=== PATIENT | female | born 1980 | race Caucasian/White ===

== ENCOUNTER 2016-11-06 16:31 | Emergency (ER) | payer OTHER ==
[~2016-11-06] VITALS: Ht 175.3 cm; Wt 136.1 kg
--- NOTE | 2016-11-06 17:32 | ED INFLUENZA/URI COMPLAINT ---
History of Present Illness General Chief Complaint: Upper Respiratory Sx/Fever Stated Complaint: ?URI Source: patient Exam Limitations: no limitations Vital Signs & Intake/Output Vital Signs & Intake/Output Vital Signs Date Time Temp Pulse Resp B/P B/P Pulse O2 O2 Flow FiO2 Mean Ox Delivery Rate 11/06 1808 98.9 86 18 132/74 94 Room Air 11/06 1801 95 Allergies Coded Allergies: Penicillins (RASH 11/06/16) Reconcile Medications Albuterol Sulfate (Ventolin Hfa) 90 MCG HFA.AER.AD 2 PUF INH Q4-6 PRN PRN WHEEZING/SHORTNESS OF BREATH Azithromycin 250 MG TABLET 1 DP PO AD lung infection 2 the first day followed by 1 for days 2-5 Benzonatate 200 MG CAPSULE 1 CAP PO TID PRN cough Prednisone 10 MG TABLET 6 TAB PO DAILY bronchospasm Triage Note: TRIAGE: SORE THROAT AND L EAR ACHE SINCE SUNDAY. SOB AND NONPRODUCTIVE COUGH SINCE SUNDAY. REPORTS RIB PAIN WITH COUGHING. 95% IN TRIAGE. HX OF ASTHMATIC BRONCHITIS A CHILD. REPORTS FEVERS AT HOME SINCE SUNDAY, HIGHEST 103. AFEBRILE IN TRIAGE. THROAT SWABS OBTAINED AND SENT TO LAB Triage Nurses Notes Reviewed? yes : No Patient currently breastfeeds: No HPI: Patient is a 36-year-old female presents complaining of sore throat, left ear pain, cough, chest congestion. Symptoms onset on Sunday. Pain in the left ear and throat been gradually improving. Cough, chest congestion, wheezing have bee worsening over the past couple of days. Patient's been taking Aleve, DayQuil, NyQuil with minimal improvement. Fevers up to 103F. Patient reports that she gets pneumonia approximately once a year. Patient had asthmatic bronchitis as a child. Does not have any inhalers at home. Patient denies sick contacts. (JUVE KHANNA) Past History Travel History Traveled to [place] past 21 day No Medical History Any Pertinent Medical History? see below for history Neurological: NONE EENT: NONE Cardiovascular: NONE Respiratory: pneumonia, ASTHMATIC BRONCHITIS Gastrointestinal: NONE Hepatic: NONE Renal: NONE Musculoskeletal: NONE Psychiatric: NONE Endocrine: NONE Blood Disorders: NONE Cancer(s): NONE Surgical History Surgical History: non-contributory Psychosocial History What is your primary language Haitian Tobacco Use: Current Not Daily Family History Hx Contributory? No (JUVE KHANNA) Review of Systems Review of Systems Constitutional: Reports: chills, fever. EENTM: Reports: see HPI. Respiratory: Reports: cough, short of breath, wheezing. Cardiovascular: Denies: chest pain. GI: Denies: abdominal pain. Musculoskeletal: Reports: no symptoms. Skin: Reports: no symptoms. Neurological/Psychological: Reports: no symptoms. Hematologic/Endocrine: Reports: no symptoms. Immunologic/Allergic: Reports: no symptoms. (JUVE KHANNA) Physical Exam Physical Exam General Appearance: well developed/nourished, alert, awake Head: atraumatic, normal appearance Eyes: Bilateral: normal appearance, PERRL, EOMI. Ears, Nose, Throat: normal ENT inspection, moist mucous membrane, hearing grossly normal, clear fluid posterior to tympanic membranes bilaterally Neck: normal inspection, supple, full range of motion Respiratory: diffuse moderate expiratory wheezing Cardiovascular: regular rate/rhythm (no appreciable murmur) Back: normal inspection, normal range of motion Extremities: normal inspection, normal range of motion Neurologic/Psych: no motor/sensory deficits, awake, alert, oriented x 3, normal gait, normal mood/affect Skin: intact, normal color, warm/dry Lymphatic: no anterior cervical saravanan Core Measures Severe Sepsis Present: No Septic Shock Present: No (JUVE KHANNA) Progress Differential Diagnosis: influenza, pneumonia, pharyngitis, sinusitis, bronchitis Plan of Care: Orders Procedure Date/time Status THROAT CULTURE W/QUICK STREP 11/06 1656 Active 1800: Patient reports mild to moderate improvement after nebulizer treatment. Lungs reexamined. Wheezing improving. Currently mild diffuse wheezing. We'll treat empirically. Chest x-ray deferred secondary to exam. Patient has no point with her primary doctor at the end of this week. Appears stable for discharge. (JUVE KHANNA) Initial ED EKG: none (JUVE KHANNA) Departure Departure Time of Disposition: 1804 Disposition: HOME OR SELF CARE Condition: Stable Clinical Impression Primary Impression: Bronchitis Referrals: FREDDY GOULD,CARLOS Alan Additional Instructions: Follow up with her primary doctor at the end of week as scheduled. Return to the emergency department if breathing worsening, unable to say hydrated, or worsening of symptoms. Departure Forms: Customer Survey General Discharge Information Prescriptions: Current Visit Scripts Azithromycin 1 DP PO AD #6 TAB 2 the first day followed by 1 for days 2-5 Prednisone 6 TAB PO DAILY #24 TAB Benzonatate 1 CAP PO TID PRN cough #30 CAP Albuterol Sulfate (Ventolin Hfa) 2 PUF INH Q4-6 PRN PRN WHEEZING/SHORTNESS OF BREATH #1 INHAL (JUVE KHANNA) PA/TRANSIT OPERATIONS SUPERVISOR Co-Sign Statement Statement: ED Attending supervision documentation- [] I saw and evaluated the patient. I have also reviewed all the pertinent lab results and diagnostic results. I agree with the findings and the plan of care as documented in the PA's/TRANSIT OPERATIONS SUPERVISOR's documentation. [X] I have reviewed the ED Record and agree with the PA's/TRANSIT OPERATIONS SUPERVISOR's documentation. [] Additions or exceptions (if any) to the PAs/TRANSIT OPERATIONS SUPERVISOR's note and plan are summarized below: [] (ODILIA GOULD,MACKENZIE)
[2016-11-06] MEDS ORDERED: VENTOLIN HFA18 GM INH (18:03)
[2016-11-06] MEDS ORDERED: AZITHROMYCIN250 M1 PO (18:03)
[2016-11-06] MEDS ORDERED: PREDNISONE10 M2 PO (18:03)
[2016-11-06] MEDS ORDERED: BENZONATATE200 M1 PO (18:03)
[2016-11-06 18:09] VITALS: BP 132/74
== END 2016-11-06 18:10 ==
LOC: ERH 16:31
DX: J40 Bronchitis, not specified as acute or chronic (principal); F17.200 Nicotine dependence, unspecified, uncomplicated
CPT/HCPCS: 1263

== ENCOUNTER 2017-01-04 16:37 | Inpatient (IN) | payer OTHER ==
[~2017-01-04] VITALS: Ht 175.3 cm; Wt 173.8 kg
[~2017-01-04 16:37] MED LIST: AZITHROMYCIN250 M1 PO; BENZONATATE200 M1 PO; PREDNISONE10 M2 PO; VENTOLIN HFA18 GM INH
--- NOTE | 2017-01-04 16:39 | NUR ---
SPO2 97% HR 112
--- NOTE | 2017-01-04 16:43 | NUR ---
36 Y/O FEMALE C/O SOB AND BILATERAL LEG SWELLING X 1-1.5 WEEKS. STATES THE SOB IS WORSE IF SHE BENDS OVER OR LAYS FLAT. MODERATE SWELLING NOTED TO BILTATERAL LEGS. DENIES PAIN TAKEN FOR EKG
--- NOTE | 2017-01-04 17:29 | ED DYSPNEA/ASTHMA COMPLAINT ---
See Addendum History of Present Illness General Chief Complaint: Dyspnea (COPD, CHF, Other) Stated Complaint: SOB, FEET SWOLLEN Source: patient Exam Limitations: no limitations Vital Signs & Intake/Output Vital Signs & Intake/Output Vital Signs Date Time Temp Pulse Resp B/P B/P Pulse O2 O2 Flow FiO2 Mean Ox Delivery Rate 01/05 2224 97.1 112 20 156/74 Room Air 01/04 2009 97.3 110 18 156/74 Room Air 01/04 1801 97.1 111 16 152/75 Room Air 01/04 1757 99 Room Air 01/04 1640 96.6 116 20 159/94 96 Room Air Allergies Coded Allergies: Penicillins (RASH 11/06/16) Reconcile Medications No Known Home Medications Triage Note: 36 Y/O FEMALE C/O SOB AND BILATERAL LEG SWELLING X 1-1.5 WEEKS. STATES THE SOB IS WORSE IF SHE BENDS OVER OR LAYS FLAT. MODERATE SWELLING NOTED TO BILTATERAL LEGS. DENIES PAIN TAKEN FOR EKG Triage Nurses Notes Reviewed? yes Onset: Gradual Duration: getting worse Timing: recent history Severity: severe Activities at Onset: activity Prior Episodes/Possible Cause: no prior episodes : No Patient currently breastfeeds: No HPI: Patient is a 36-year-old female with an unremarkable past medical history who is in every day smoker who presents emergency room with a 2 week history of gradual onset of worsening bilateral lower extremity swelling. Patient also admits to dyspnea on exertion complaints since symptoms began. Patient last week had a one-day episode of chest pressure and heaviness pain that resolved that day and none since. Patient does have nausea that was noted yesterday. Patient states that ambulation lying down and bending over makes her shortness of breath worse. Patient denies any illicit drug use. Denies any fever chills current chest pain nausea vomiting abdominal pain back pain, hemoptysis, history of DVT or PE recent travel recent surgery. Patient is not on an oral contraceptive. Denies any palpitations or diaphoresis (KIESHA HOLLOWAY) Past History Travel History Traveled to [place] past 21 day No Medical History Any Pertinent Medical History? see below for history Neurological: NONE EENT: NONE Cardiovascular: NONE Respiratory: pneumonia, ASTHMATIC BRONCHITIS Gastrointestinal: NONE Hepatic: NONE Renal: NONE Musculoskeletal: NONE Psychiatric: NONE Endocrine: NONE Blood Disorders: NONE Cancer(s): NONE Surgical History Surgical History: non-contributory Psychosocial History What is your primary language Sammarinese Tobacco Use: Current Daily Use Daily Tobacco Use Amount/Type: =< 4 Cigarettes daily Family History Hx Contributory? No (KIESHA HOLLOWAY) Review of Systems Review of Systems Constitutional: Reports: no symptoms. EENTM: Reports: no symptoms. Respiratory: Reports: see HPI, short of breath. Cardiovascular: Reports: see HPI, peripheral edema. GI: Reports: no symptoms. Genitourinary: Reports: no symptoms. Musculoskeletal: Reports: no symptoms. Skin: Reports: no symptoms. Neurological/Psychological: Reports: no symptoms. Hematologic/Endocrine: Reports: no symptoms. Immunologic/Allergic: Reports: no symptoms. All Other Systems: Reviewed and Negative (KIESHA HOLLOWAY) Physical Exam Physical Exam General Appearance: obese Respiratory: normal breath sounds, chest non-tender, no respiratory distress Cardiovascular: tachycardia Comments: HEENT: Normal EENT exam, Neck: Supple, no lymphadenopathy, normal range of motion without pain or tenderness Back: Nontender, no CVA tenderness. Respiratory: Chest nontender. No respiratory distress.breath sounds clear to auscultation bilaterally Abdomen: Soft, nontender nondistended, no appreciable organomegaly. Normal bowel sounds. No ascites Extremity: +2 nonpitting bilateral lower extremity edema no calf tenderness to palpation, normal and equal pulses. Neuro: Alert oriented x3, motor sensory normal, Skin: No appreciable rash on exposed skin, skin is warm and dry. Psych: Mood and affect is normal, memory and judgment is normal. Core Measures ACS in differential dx? No Severe Sepsis Present: No Septic Shock Present: No (KIESHA HOLLOWAY) Progress Differential Diagnosis: asthma, AMI, bronchitis, costochondritis, CHF, COPD, musculoskeletal pain, pericarditis, pulmonary embolism, pneumonia, pneumothorax, rib fracture, unstable angina Plan of Care: Orders Procedure Date/time Status Regular Diet 01/05 B Active Intake & Output 01/04 2211 Active OXYGEN SETUP (GEN) 01/05 2204 Active Saline Lock 01/05 2204 Active Misc Message 01/05 2204 Active ED Holding Orders 01/05 2204 Active Vital Signs 01/05 2204 Active Activity/Ambulation 01/05 2204 Active Code Status 01/05 2204 Active Patient Data 01/04 2147 Active Admit to inpatient 01/04 2127 Active Add-on Test (ER Only) 01/04 1813 Active HUMAN BETA HCG SCREEN 01/04 1757 Complete Telemetry/Software Test Specialist 01/04 1751 Active THYROID STIMULATING HORMONE 01/04 1751 Complete TROPONIN LEVEL 01/04 1751 Complete FREE T4 01/04 1751 Complete D-DIMER 01/04 1751 Complete COMPREHENSIVE METABOLIC PANEL 01/04 1751 Complete CBC WITHOUT DIFFERENTIAL 01/04 1751 Complete B-TYPE NATRIURETIC PEP (BNP) 01/04 1751 Complete EKG 01/04 1641 Active Laboratory Tests 01/04/171756: Anion Gap 10, Estimated GFR 57 L, BUN/Creatinine Ratio 16.4, Glucose 107 H, Calcium 9.5, Total Bilirubin 1.2, AST 24, ALT 54 H, Alkaline Phosphatase 65, Troponin I 0.07, Bgc-H-Btlmssiwwqt Pept 6720 H, Total Protein 6.2 L, Albumin 3.9, Globulin 2.3, Albumin/Globulin Ratio 1.7, TSH 4.730 H, Free T4 1.37, Total Beta HCG NEGATIVE, D-Dimer High Sensitivty 619 H, CBC w Diff NO MAN DIFF REQ, RBC 4.59, MCV 86.1, MCH 27.9, RDW 15.8 H, MPV 10.0, Gran % 58.7, Lymphocytes % 31.6, Monocytes % 3.9, Eosinophils % 4.5, Basophils % 1.3, Absolute Granulocytes 5.8, Absolute Lymphocytes 3.1, Absolute Monocytes 0.4, Absolute Eosinophils 0.4, Absolute Basophils 0.1, PUBS MCHC 32.4 L Patient on initial examination was resting comfortably at bedside clear lungs auscultation however there is noted persistent tachycardia 110 bpm. Due to history of present illness of trace pleural effusion, leg swelling, dyspnea on exertion elevated BNP and cardiomegaly there is concerns of acute onset of CHF. Patient was administered IV Lasix in the emergency room. It was noted to me after mom did present to the emergency room that 18 months ago patient had a cardiac arrest due to significant ecstasy use. Patient states that she has done this in the past however she states that she was not an EVERYDAY user. Patient has not used since I discussed patient with Dr. Cooley who advised patient to be admitted on telemetry under his service in which patient will occur echocardiogram pulmonary consultation and WINDOW CUTTER for the adenopathy noted on CT scan. (CAITLYN PATRICIA,KIESHA) Diagnostic Imaging: Viewed by Me: Radiology Read, CT Scan, Ultrasound. CXR Impression: cardiomegaly see comments Initial ED EKG: sinus tachycardia 114 bpm, multiple artifact noted Comments: PATIENT: ION FOWLER PRESENT AGE: 36 PATIENT ACCOUNT NO: [id number] : 81 LOCATION: [facility] ORDERING PHYSICIAN: KIESHA PATRICIA SERVICE DATE: 01/04/17 EXAM TYPE: CAT - CTA CHEST-PULMONARY EMBOLISM EXAMINATION: CT ANGIOGRAM OF THE CHEST WITH AND WITHOUT CONTRAST (CT PULMONARY ANGIOGRAM FOR PE) CLINICAL INFORMATION: Reason for Study:
Presumptive Dx: SOB, ELEVATED DIMER
Signs Symptoms: LEG SWELLING
COMPARISON: None. TECHNIQUE: Prior to contrast administration, noncontrast localization images were obtained. Subsequently, multidetector volumetric imaging was performed from the thoracic inlet to below the diaphragms following the administration of 120 mL Optiray 350 intravenous contrast. No contrast reaction reported. Sagittal, coronal, and MIP oblique sagittal reformatted images were obtained on the CT workstation, uploaded to PACS, and reviewed. Total exam dose-length product 630 mGy-cm. FINDINGS: QUALITY OF STUDY/CONTRAST BOLUS: Satisfactory PULMONARY ARTERIES: No central or segmental pulmonary emboli. THORACIC AORTA: No aneurysm or dissection. LUNG: No focal consolidation, nodules or masses. Mild dependent basilar atelectasis. PLEURA: Trace right-sided pleural effusion. No pneumothorax. MEDIASTINUM: Multiple small right-sided superior clavicular lymph nodes are suggested the largest just under 1 cm maximal dimension. A similar sized pretracheal lymph node is also identified. There is subcarinal lymphadenopathy measuring 2.8 cm in short axis dimension. There are a few mildly prominent prevascular lymph nodes the largest measuring 1 cm short axis dimension. Heart is mildly enlarged. There is no pericardial effusion. CHEST WALL/AXILLA: No axillary adenopathy. Breasts appear unremarkable. OSSEOUS STRUCTURES: No aggressive osseous lesions. UPPER ABDOMEN: Unremarkable. IMPRESSION: 1. No evidence of pulmonary emboli. 2. Trace right-sided pleural effusion and basilar atelectasis. 3. Right supraclavicular and subcarinal lymphadenopathy with other small borderline enlarged mediastinal nodes as noted. Differential includes reactive changes versus sarcoidosis versus malignancy. Clinical and nonemergent pulmonary consultation is recommended. VTE: Negative for pulmonary embolism. DICTATED BY: DACIA MAE MD DATE/TIME DICTATED:01/04/172018 ABA THERAPIST:MATEUS DATE/TIME TRANSCRIBED:01/04/172018 CONFIDENTIAL, DO NOT COPY WITHOUT APPROPRIATE AUTHORIZATION. <Electronically signed in Other Vendor System> SIGNED BY: DACIA MAE MD 2102 PATIENT: ION FOWLER PRESENT AGE: 36 PATIENT ACCOUNT NO: [id number] : 81 LOCATION: ER ORDERING PHYSICIAN: KIESHA PATRICIA SERVICE DATE: 01/04/17 EXAM TYPE: US - US-EXT BILAT VENOUS DOPPLER EXAMINATION: US TRIPLEX OF LOWER EXTREMITIES, BILATERAL CLINICAL INFORMATION: Bilateral lower extremity swelling. COMPARISON: None TECHNIQUE: Color-flow triplex imaging with spectral analysis and compression Doppler were performed on the lower extremities. Technologist notes exam is very limited due to patient body habitus. Selected static images are provided for interpretation. FINDINGS: Respiratory variation, normal compression and augmented flow are noted throughout the lower extremities. The visualized common femoral vein, superficial femoral vein, profunda femoral vein, popliteal vein and tibioperoneal trunk venous segments show no evidence of deep venous thrombosis. Calf veins below the tibioperoneal trunk are not visualized on this exam. There is no Muse's cyst. IMPRESSION: No evidence of deep venous thrombosis involving the lower extremities. Calf veins are not visualized. DICTATED BY: DACIA MAE MD DATE/TIME DICTATED:01/04/171931 PATIENT: ION FOWLER PRESENT AGE: 36 PATIENT ACCOUNT NO: [id number] : 81 LOCATION: [facility] ORDERING PHYSICIAN: RORY ANDRADE MD SERVICE DATE: 01/04/17 EXAM TYPE: RAD - XRY-CHEST XRAY, PA AND LATERAL EXAMINATION: XR CHEST CLINICAL INFORMATION: Cough, short of breath. COMPARISON: None TECHNIQUE: 2 views of the chest were obtained. FINDINGS: Exam is of somewhat limited diagnostic quality due to patient body habitus and technique, especially the lateral view. Heart appears enlarged. The cardiomediastinal silhouette is otherwise unremarkable. The lungs and pleural spaces appear clear without evidence of congestion, consolidation, or significant appearing effusion or atelectasis. There is no evidence of pneumothorax or pulmonary edema. Included osseous structures appear largely unremarkable. IMPRESSION: Cardiomegaly, no definite acute process on this somewhat limited examination. DICTATED BY: DACIA MAE MD DATE/TIME DICTATED:01/04/171746 ABA THERAPIST:MATEUS DATE/TIME TRANSCRIBED:01/04/171746 (KIESHA HOLLOWAY) Departure Departure Disposition: STILL A PATIENT Condition: Stable Clinical Impression Primary Impression: CHF (congestive heart failure) Secondary Impressions: Lymphadenopathy Referrals: PATIENT HAS NO PRIMARY CARE DR (PCP/Family) Departure Forms: Customer Survey General Discharge Information Prescriptions: Current Visit Scripts No Known Home Medications Admission Note Spoke With: Elina COOLEY MD Documentation of Exam: Documentation of any treatments & extenuating circumstances including Concerns Regarding Discharge (functional status, medication knowledge or non-compliance, living conditions, etc.) that warrant an admission rather than observation: [ Discussed patient with Dr. Cooley who agrees with telemetry admission for concerns of CHF and adenopathy. Patient requires echocardiogram, pulmonary consultation and possible WINDOW CUTTER consultation for adenopathy. Patient requires IV Lasix and continuous monitoring of telemetry. Outpatient treatment at this time would be medically harmful] (KIESHA HOLLOWAY) PA/PIPE FITTER APPRENTICE Co-Sign Statement Statement: ED Attending supervision documentation- [X] I saw and evaluated the patient. I have also reviewed all the pertinent lab results and diagnostic results. I agree with the findings and the plan of care as documented in the PA's/PIPE FITTER APPRENTICE's documentation. [X] I have reviewed the ED Record and agree with the PA's/PIPE FITTER APPRENTICE's documentation. [] Additions or exceptions (if any) to the PAs/PIPE FITTER APPRENTICE's note and plan are summarized below: [] (JOSÉ MIGUEL GOULD,YASMIN Freedman) Critical Care Note Critical Care Note Critical Care Time: non-applicable (KIESHA HOLLOWAY)
--- NOTE | 2017-01-04 17:35 | NUR ---
PT AMBULATORY TO ROOM FROM XRAY
--- NOTE | 2017-01-04 17:51 | RADIOLOGY REPORT ---
EXAMINATION: XR CHEST CLINICAL INFORMATION: Cough, short of breath. COMPARISON: None TECHNIQUE: 2 views of the chest were obtained. FINDINGS: Exam is of somewhat limited diagnostic quality due to patient body habitus and technique, especially the lateral view. Heart appears enlarged. The cardiomediastinal silhouette is otherwise unremarkable. The lungs and pleural spaces appear clear without evidence of congestion, consolidation, or significant appearing effusion or atelectasis. There is no evidence of pneumothorax or pulmonary edema. Included osseous structures appear largely unremarkable. IMPRESSION: Cardiomegaly, no definite acute process on this somewhat limited examination.
--- NOTE | 2017-01-04 18:00 | NUR ---
LABS DRAWN AND SENT (BLUE,SST,LAV,BURDICK)
[2017-01-04 18:12] LABS: ABSOLUTE BASOPHIL COUNT 0.1 /CUMM (0.0-0.2); ABSOLUTE EOSINOPHIL COUNT 0.4 /CUMM (0.0-0.7); ABSOLUTE GRANULOCYTE CT 5.8 /CUMM (1.4-6.5); ABSOLUTE LYMPH COUNT 3.1 /CUMM (1.2-3.4); ABSOLUTE MONOCYTE COUNT 0.4 /CUMM (0.10-0.60); BASOPHIL % 1.3 % (0.0-2.0); EOSINOPHIL % 4.5 % (0-5); GRANULOCYTE % 58.7 % (42.2-75.2); HEMATOCRIT 39.6 % (37-47); MEAN CORPUSCULAR HGB 27.9 PG (27.0-31.0); MEAN CORPUSCULAR HGB CONC 32.4 G/DL (33.0-37.0); MEAN CORPUSCULAR VOLUME 86.1 FL (81.0-99.0); PLATELET COUNT 276 /CUMM (130-400); RBC DISTRIBUTION WIDTH 15.8 % (11.5-14.5); RED BLOOD CELL CT 4.59 /CUMM (4.20-5.40); WHITE BLOOD CELL COUNT 9.9 /CUMM (4.8-10.8)
--- NOTE | 2017-01-04 19:02 | NUR ---
PT TO ULTRASOUND
--- NOTE | 2017-01-04 19:38 | ULTRASOUND REPORT ---
EXAMINATION: US TRIPLEX OF LOWER EXTREMITIES, BILATERAL CLINICAL INFORMATION: Bilateral lower extremity swelling. COMPARISON: None TECHNIQUE: Color-flow triplex imaging with spectral analysis and compression Doppler were performed on the lower extremities. Technologist notes exam is very limited due to patient body habitus. Selected static images are provided for interpretation. FINDINGS: Respiratory variation, normal compression and augmented flow are noted throughout the lower extremities. The visualized common femoral vein, superficial femoral vein, profunda femoral vein, popliteal vein and tibioperoneal trunk venous segments show no evidence of deep venous thrombosis. Calf veins below the tibioperoneal trunk are not visualized on this exam. There is no Muse's cyst. IMPRESSION: No evidence of deep venous thrombosis involving the lower extremities. Calf veins are not visualized.
--- NOTE | 2017-01-04 19:54 | NUR ---
CT CALLED AND NOTIFIED IV PLACED AND PT READY
--- NOTE | 2017-01-04 20:58 | NUR ---
HARSHAD BRADY WITH PATIENT
--- NOTE | 2017-01-04 21:03 | CT SCAN REPORT ---
EXAMINATION: CT ANGIOGRAM OF THE CHEST WITH AND WITHOUT CONTRAST (CT PULMONARY ANGIOGRAM FOR PE) CLINICAL INFORMATION: Reason for Study:
Presumptive Dx: SOB, ELEVATED DIMER
Signs Symptoms: LEG SWELLING
COMPARISON: None. TECHNIQUE: Prior to contrast administration, noncontrast localization images were obtained. Subsequently, multidetector volumetric imaging was performed from the thoracic inlet to below the diaphragms following the administration of 120 mL Optiray 350 intravenous contrast. No contrast reaction reported. Sagittal, coronal, and MIP oblique sagittal reformatted images were obtained on the CT workstation, uploaded to PACS, and reviewed. Total exam dose-length product 630 mGy-cm. FINDINGS: QUALITY OF STUDY/CONTRAST BOLUS: Satisfactory PULMONARY ARTERIES: No central or segmental pulmonary emboli. THORACIC AORTA: No aneurysm or dissection. LUNG: No focal consolidation, nodules or masses. Mild dependent basilar atelectasis. PLEURA: Trace right-sided pleural effusion. No pneumothorax. MEDIASTINUM: Multiple small right-sided superior clavicular lymph nodes are suggested the largest just under 1 cm maximal dimension. A similar sized pretracheal lymph node is also identified. There is subcarinal lymphadenopathy measuring 2.8 cm in short axis dimension. There are a few mildly prominent prevascular lymph nodes the largest measuring 1 cm short axis dimension. Heart is mildly enlarged. There is no pericardial effusion. CHEST WALL/AXILLA: No axillary adenopathy. Breasts appear unremarkable. OSSEOUS STRUCTURES: No aggressive osseous lesions. UPPER ABDOMEN: Unremarkable. IMPRESSION: 1. No evidence of pulmonary emboli. 2. Trace right-sided pleural effusion and basilar atelectasis. 3. Right supraclavicular and subcarinal lymphadenopathy with other small borderline enlarged mediastinal nodes as noted. Differential includes reactive changes versus sarcoidosis versus malignancy. Clinical and nonemergent pulmonary consultation is recommended. VTE: Negative for pulmonary embolism.
--- NOTE | 2017-01-04 21:56 | NUR ---
PT GOING TO ROOM 180-1
--- NOTE | 2017-01-04 22:35 | NUR ---
REPORT TO SHARRON OCONNOR ON 1N
--- NOTE | 2017-01-04 22:39 | History & Physical ---
See Addendum JUVE JOHNSON MD 01/04/17 5609: General Information and HPI MD Statement: I have seen and personally examined ION FOWLER and documented this H& P. The patient is a 36 year old F who presented with a patient stated chief complaint of dyspnea and lower extremity edema. Source of Information: patient Exam Limitations: no limitations History of Present Illness: 36 year old female with PMH of smoking 15 pack years, asthma/COPD, h/o pneumonia presents with one week history of increasing dyspnea on exertion and lower extremity edema. Patient states that her lower Allergies/Medications Allergies: Coded Allergies: Penicillins (RASH 11/06/16) Home Med list No Known Home Medications Compliance With Home Meds: GOOD (no meds) Past History Travel History Traveled to [place] past 21 day No Medical History Neurological: NONE EENT: NONE Cardiovascular: mitral regurgitation (mvp), cardiac arrest s/p drug Respiratory: pneumonia, ASTHMATIC BRONCHITIS Gastrointestinal: NONE Hepatic: NONE Renal: NONE Musculoskeletal: NONE Psychiatric: NONE Endocrine: NONE Blood Disorders: NONE Cancer(s): NONE Surgical History Surgical History: right shoulder Past Family/Social History Family History Relations & Conditions if any paternal grandmother FH: coronary artery disease Hypertension Psychosocial History Smoking Status: Current Everyday Smoker (1ppd) ETOH Use: occasional use Functional Ability ADLs Independent: dressing, eating, toileting, bathing. Ambulation: independent IADLs Independent: shopping, housework, finances, food prep, telephone, transportation , medication admin. Employment History Employment recent job loss 01/15 Review of Systems Review of Systems Constitutional: Reports: no symptoms. EENTM: Reports: no symptoms. Cardiovascular: Reports: edema, orthopena, peripheral edema. Denies: chest pain, palpitations, syncope. Respiratory: Reports: cough, orthopnea, short of breath. Denies: hemoptysis, sputum production, stridor, wheezing. GI: Reports: nausea. Denies: abdominal pain, constipation, diarrhea, melena, vomiting. Genitourinary: Denies: dysuria, frequency, nocturia, urgency. Musculoskeletal: Reports: no symptoms. Skin: Reports: no symptoms. Neurological/Psychological: Reports: no symptoms. Exam & Diagnostic Data Last 24 Hrs of Vital Signs/I&O Vital Signs Date Time Temp Pulse Resp B/P B/P Pulse O2 O2 Flow FiO2 Mean Ox Delivery Rate 01/04 2316 98.1 107 20 128/90 95 Room Air 01/04 2224 97.1 112 20 156/74 Room Air 01/04 2009 97.3 110 18 156/74 Room Air 01/04 1801 97.1 111 16 152/75 Room Air 01/04 1757 99 Room Air 01/04 1640 96.6 116 20 159/94 96 Room Air Intake & Output 01/05 0800 07 0000 01/04 1600 Intake Total 180 Output Total Balance 180 Intake, Oral 180 Patient 350 lb Weight Weight Reported by Patient Measurement Method Physical Exam General Appearance Alert, Oriented X3, Cooperative, No Acute Distress Skin No Rashes, No Breakdown Skin Temp/Moisture Exam: Warm/Dry Sepsis Skin Exam (color): Normal for Ethnicity HEENT Atraumatic, PERRLA, EOMI, Mucous Membr. moist/pink Neck Supple, No JVD Lymphatic Cervical nl (tender to palpation on the rig) Cardiovascular Regular Rate, Normal S1, Normal S2, No Murmurs Lungs Clear to Auscultation, Normal Air Movement Abdomen Normal Bowel Sounds, Soft, No Tenderness, No Masses, obese Neurological Normal Gait, Normal Speech, Strength at 5/5 X4 Ext, Normal Tone, Sensation Intact, Cranial Nerves 3-12 NL Extremities No Clubbing, No Cyanosis, Normal Pulses, 2+ pitting edema to midshin Vascular Normal Pulses, Pulses Symmetrical Last 24 Hrs of Labs/[place]: Laboratory Tests 01/04/171756: Anion Gap 10, Estimated GFR 57 L, BUN/Creatinine Ratio 16.4, Glucose 107 H, Calcium 9.5, Total Bilirubin 1.2, AST 24, ALT 54 H, Alkaline Phosphatase 65, Troponin I 0.07, [id number] Pept 6720 H, Total Protein 6.2 L, Albumin 3.9, Globulin 2.3, Albumin/Globulin Ratio 1.7, TSH 4.730 H, Free T4 1.37, Total Beta HCG NEGATIVE, D-Dimer High Sensitivty 619 H, CBC w Diff NO MAN DIFF REQ, RBC 4.59, MCV 86.1, MCH 27.9, RDW 15.8 H, MPV 10.0, Gran % 58.7, Lymphocytes % 31.6, Monocytes % 3.9, Eosinophils % 4.5, Basophils % 1.3, Absolute Granulocytes 5.8, Absolute Lymphocytes 3.1, Absolute Monocytes 0.4, Absolute Eosinophils 0.4, Absolute Basophils 0.1, PUBS MCHC 32.4 L Diagnostic Data EKG Results sinus tachycardia, borderline prolonged qt, t wave flattening lateral leads CXR Results cardiomegaly Other Results CTA chest-No evidence of pulmonary emboli. Trace right-sided pleural effusion and basilar atelectasis. Right supraclavicular and subcarinal lymphadenopathy with other small borderline enlarged mediastinal nodes LE Doppler negative for DVT Assessment/Plan Assessment: 36 year old female with PMH of smoking and multiple past PNAs presents with one week history of increasing dyspnea on exertion and lower extremity edema. Patient has new subacute onset of GALAVIZ with LE edema, cardiomegaly on CXR and elevated proBNP concerning for new onset congestive heart failure. Admit to telemetry, continuous rhythm monitoring, vitals qshift. 1. Congestive heart failure: h/o cardiac arrest and CPR Spring 2015 secondary to drug accidental drug overdose. Serial troponins/EKGs to rule out ACS Cardiology consult Echocardiogram Check lipid panel Patient recieved IV furosemide in the ED Lifestyle modification-diet, exercise and weight loss counseling Consider starting statin therapy if appropriate Can consider treatment with an JUAREZ inhibitor 2. Acute renal failure: Creatinine elevated to 1.1 baseline is 0.7, s/p IV furosemide in ED No IV fluid hydration for now with acute CHF presumptive diagnosis Trend renal function and electrolye panel with AM labs D dimer was elevated in ED, LE doppler and CTA chest negative for DVT/PE Incidental finding on CTA of enlarged supraclavicular and carinal nodes, nonurgent pulmonary consultation recommended. Smoking cessation-nicotine patch 14mg Heart healthy diet DVT ppx-heparin 5000u subq Q8H Full code As Ranked By This Provider Problem List: 1. CHF (congestive heart failure) Core Measures/Miscellaneous Acute Coronary Syndrome ACS Diagnosis: No Cerebrovascular Accident CVA/TIA Diagnosis: No Congestive Heart Failure CHF Diagnosis: Yes VTE (View Protocol) VTE Risk Factors: Acute medical illness, Obesity, Smoking No [facility] VTE prophylaxis d/t: No contraindications No VTE Pharm Prophylaxis d/t: No contraindications VTE Diagnosis: No VTE Type: NONE VTE Confirmed by (Test): NONE Sepsis (View Protocol) Severe Sepsis Present: No Septic Shock Septic Shock Present: No Miscellaneous Documentation Attending Case Discussed With: YASIR GOULD,Elina HUERTA Primary Care Physician: PATIENT HAS NO PRIMARY CARE DR Patient sees these Specialists none Level of Patient Care: Telemetry Consults Needed: Consulting Specialty: Cardiology SADIQ MORTENSEN 01/04/17 1099: Resident Review Statement Resident Statement: examined this patient, discussed with graphics intern, agreed with graphics intern Other Findings: Patient is 36 year old morbidly obese female with past medical history significant for mitral valve prolapse diagnosis as a child 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 According to her she start noticing left lower extremity edema especially on her left fourth later on she was start noticing on right leg and foot as well and her shortness of breath it is getting worse to a point that she gets short of breath even walking to the restroom and also when she lied down and bend over. She denied any cough, wheezing, chest pain, palpitations, headache, any urinary or bowel complaints. She is a current smoker and smoked less than a pack a day. She denied any recent incarceration, any sick contact, fever or chills. Vision endorses that she had recent bronchitis and she had pneumonia almost every year for past 3 years. Vital signs on admission were temperature 97.1, pulse 111, blood pressure 152/75 and she was saturating 96% on room air. Labs were WBC count 9.9, hemoglobin 12.8, platelet count 276, d-dimer 619, sodium 141, potassium 4.7, BUNs 18, creatinine 1.1, initial set of troponin 0.07 , proBNP 6720 Venous Doppler was negative for any DVT Chest CTA was negative for any pulmonary emboli but showed right supraclavicular and subcarinal lymphadenopathy with small borderline enlarged mediastinal nodes. Also trace right-sided pleural effusion and basilar atelectasis. On physical examination Alert and oriented 3 Head atraumatic Neck supple with supraclavicular fullness Lungs clear to auscultate Heart S1-S2 normal with no added sounds Abdomen obese with normal bowel sounds Extremities showed bilateral 2+ pitting edema No neurological deficit noted Assessment and plan 36 year old morbidly obese female with history of drug overdose status post cardiac arrest came with chief complaint of worsening bilateral lower extremity edema and shortness of breath and found to have elevated proBNP and pleural effusion most likely new onset CHF. Also found to have supraclavicular, subcarinal and mediastinal lymphadenopathy. We will admit patient on telemetry floor and will take care for the following problems Problem #1 bilateral lower extremity edema with cardiomegaly and pleural effusion most likely new onset CHF 1. Patient was given 40 mg of IV Lasix in ER and we will start on 40 mg Lasix daily 2. States in's and out Daily weight Cardiology consultation Echocardiogram We will trend towards an EKG is to rule out ACS Problem #2 supraclavicular, subcarinal and mediastinal lymphadenopathy we will ruled out any intrathoracic/bronchial/intra-abdominal pathology/malignancy We will request pulmonary evaluation in a.m. Her lymphadenopathy could be reactive but she has lymphadenopathy more than 1 cm suspicious for malignancy. She might need a course of antibiotics prior to further decision for biopsy. Problem #3 history of cardiac arrest and polysubstance abuse We will check U tox at this point Problem #4 current smoker Smoking cessation counseling done We will provide patient with nicotine patch if needed Pharmacological DVT prophylaxis Patient is full code Heart healthy diet
[2017-01-04 23:16] VITALS: BP 128/90
--- NOTE | 2017-01-05 02:35 | NUR ---
late entry pt admitted from er. Alert and oreinted x3. ra. Sinus Tach on monitor. deneis pain. ekg and trop as ordered. Will continue to monitor.
[2017-01-05 07:15] VITALS: BP 120/78
[2017-01-05 08:54] LABS: ABSOLUTE BASOPHIL COUNT 0.1 /CUMM (0.0-0.2); ABSOLUTE EOSINOPHIL COUNT 0.4 /CUMM (0.0-0.7); ABSOLUTE GRANULOCYTE CT 5.2 /CUMM (1.4-6.5); ABSOLUTE LYMPH COUNT 3.2 /CUMM (1.2-3.4); ABSOLUTE MONOCYTE COUNT 0.4 /CUMM (0.10-0.60); BASOPHIL % 0.7 % (0.0-2.0); EOSINOPHIL % 4.5 % (0-5); GRANULOCYTE % 56.1 % (42.2-75.2); HEMATOCRIT 38.6 % (37-47); MEAN CORPUSCULAR HGB 28.2 PG (27.0-31.0); MEAN CORPUSCULAR HGB CONC 32.7 G/DL (33.0-37.0); MEAN CORPUSCULAR VOLUME 86.2 FL (81.0-99.0); MEAN PLATELET VOLUME 10.4 FL (7.4-10.4); PLATELET COUNT 256 /CUMM (130-400); RBC DISTRIBUTION WIDTH 15.7 % (11.5-14.5); RED BLOOD CELL CT 4.48 /CUMM (4.20-5.40); WHITE BLOOD CELL COUNT 9.3 /CUMM (4.8-10.8)
--- NOTE | 2017-01-05 14:02 | NUR ---
NURSING NOTE: PER TELEMETRY ROOM PATIENT HAD A 7 BEAT RUN OF V-TACH. PAINTER SKI EDGE HORTENCIA AND RESIDENT REETUP NOTIFIED IMMEDIATELY. PATIENT DENIES CP OR DIFFICULT BREATHING, RESTING COMFORTABLY IN BED. PER RESIDENT, MONITOR PATIENT BUT NO FURTHER ORDERS AT THIS TIME.
[2017-01-05 14:56] VITALS: BP 120/80
--- NOTE | 2017-01-05 18:44 | PN- Housestaff ---
Subjective Follow-up For: CHF Complaints: no complaints Tele-Events Since Last Visit: NSR 90-100 Subjective: patient is sitting up in bed, no complaints currently, notices that the swelling in her legs has gone down and her shortness of breath is better, still experiencing orthopnea. denies headache, cp, nv, dizziness, syncope. notes pain in her right shoulder. Review of Systems Constitutional: Reports: no symptoms. EENTM: Reports: no symptoms. Cardiovascular: Reports: no symptoms. Respiratory: Denies: orthopnea, short of breath. Gastrointestinal: Reports: no symptoms. Genitourinary: Reports: no symptoms. Musculoskeletal: Reports: muscle pain. Skin: Reports: no symptoms. Neurological/Psychological: Reports: no symptoms. Hematologic/Endocrine: Reports: no symptoms. Objective Last 24 Hrs of Vital Signs/I&O Vital Signs Date Time Temp Pulse Resp B/P B/P Pulse O2 O2 Flow FiO2 Mean Ox Delivery Rate 01/05 1456 99.0 106 18 120/80 96 Room Air 01/05 0715 98.0 97 16 120/78 93 Room Air 01/04 2316 98.1 107 20 128/90 95 Room Air 01/04 2224 97.1 112 20 156/74 Room Air 01/04 2009 97.3 110 18 156/74 Room Air Intake & Output 01/05 1600 /07 0800 01/05 0000 Intake Total 880 120 180 Output Total 1150 800 Balance -270 -680 180 Intake, IV 30 Intake, Oral 850 120 180 Output, Urine 1150 800 Patient 350 lb Weight Weight Reported by Patient Measurement Method Physical Exam General Appearance: Alert, Oriented X3, Cooperative, No Acute Distress Skin: No Rashes, No Breakdown, No Significant Lesion Skin Temp/Moisture Exam: Warm/Dry Sepsis Skin Exam (color): Normal for Ethnicity HEENT: Atraumatic, PERRLA, EOMI, Mucous Membr. moist/pink Neck: Supple, No JVD, No thryomegaly Cardiovascular: Regular Rate, Normal S1, Normal S2, No Murmurs, Gallops, Rubs Lungs: Clear to Auscultation, Normal Air Movement Abdomen: Normal Bowel Sounds, Soft, No Tenderness, No Hepatospenomegaly, No Masses Neurological: Normal Speech Extremities: nonpitting edema bilaterally Vascular: Normal Pulses Sepsis Peripheral Pulse Location: Radial Sepsis Peripheral Pulse Exam: Normal Current Medications: Current Medications Sig/Isidro Start time Last Medication Dose Route Stop Time Status Admin Acetaminophen 650 MG Q6P PRN 01/04 2315 AC PO Acetaminophen/ 1 TAB Q6P PRN 01/04 2315 AC Hydrocodone Bitart PO Furosemide 40 MG DAILY 01/05 1000 AC 01/05 IV 0917 Furosemide 0 .STK-MED ONE 01/04 2049 DC IV Furosemide 40 MG ONCE ONE 01/05 2000 DC 01/04 IV 01/04 Heparin Sodium 5,000 UNIT Q8 01/04 230 AC 01/05 (Porcine) SC 1319 Last 24 Hrs of Lab/[place] Results Last 24 Hrs of Labs/Mics: Laboratory Tests 01/05/17 0703: Anion Gap 11, Estimated GFR 57 L, BUN/Creatinine Ratio 16.4, Troponin I 0.06, CBC w Diff NO MAN DIFF REQ, RBC 4.48, MCV 86.2, MCH 28.2, RDW 15.7 H, MPV 10.4, Gran % 56.1, Lymphocytes % 34.0, Monocytes % 4.7, Eosinophils % 4.5, Basophils % 0.7, Absolute Granulocytes 5.2, Absolute Lymphocytes 3.2, Absolute Monocytes 0.4 , Absolute Eosinophils 0.4, Absolute Basophils 0.1, PUBS MCHC 32.7 L 01/05/17 0640: Urine Opiates Screen < 100.00, Methadone Screen < 40, Barbiturate Screen < 60, Ur Phencyclidine Scrn < 6.00, Amphetamines Screen < 100, U Benzodiazepines Scrn < 85, Urine Cocaine Screen < 50, Urine Cannabis Screen < 5.00, Urine Color YEL, Urine Clarity CLEAR, Urine pH 6.0, Ur Specific [place] 1.010, Urine Protein NEG, Urine Ketones NEG, Urine Nitrite NEG, Urine Bilirubin NEG, Urine Urobilinogen 0.2, Ur Leukocyte Esterase NEG, Ur Microscopic EXAM NOT REQUIRED, Urine Hemoglobin NEG, Urine Glucose NEG 01/05/17 0005: Troponin I 0.07 Orders Radiology Findings: CTA VTE: Negative for pulmonary embolism. CXRAY Cardiomegaly, no definite acute process on this somewhat limited examination. Assessment/Plan Assessment: 36 year old female with PMH of DRUG OVERDOSE LEADING TO CARDIAC ARREST, SMOKING, PNA, presents with one week history of increasing dyspnea on exertion and lower extremity edema. Patient hasnew dsypnea on exertion, orthopnea, LE bilateral edema, cardiomegaly on CXR and elevated proBNP concerning for new onset congestive heart failure. patient found to have possible right clavicular lymphadenopathy incidentally. 1. congestive heart failure 2. acute renal failure 3. dvt? 4. smoking 5. lung nodes? PLAN 1. troponins ekgs negative. echo benign. continue lasix 40mg iv. echoordered. 2. watch cr for tomorrow. 3. cta negative for dvt. heparin prophylaxis for now. 4. smoking patch 5. Incidental finding on CTA of enlarged supraclavicular and carinal nodes, nonurgent pulmonary consultation recommended. heart healthy diet heparin dvt prophylaxis full code Problem List: 1. CHF (congestive heart failure) 2. Lymphadenopathy Pain Ratin Pain Location: right shoulder on palpation Pain Goal: Pain 4 or less Pain Plan: tylenol vicodin for moderate pain Tomorrow's Labs & Rationales: cr, DVT/Prophylaxis: pharmacological Consulting Request: Consulting Specialty: Cardiology
--- NOTE | 2017-01-05 20:29 | ECHOCARDIOGRAM REPORT ---
ION FOWLER Age: 36 : 1980 Gender: F Exam Date: 01/05/2017 12:34 Exam Location: [place] Ht (in): 69 Wt (lb): 350 BSA: 2.87 BP: 120 / 78 Ordering Physician: SADIQ MORTENSEN MD Referring Physician: SADIQ MORTENSEN MD Technologist: To Tamayo [facility] Room Number: 180-1 Indications: Heart failure, unspecified Rhythm: Sinus Technical Quality: Fair, Technically difficult study FINDINGS Left Ventricle Moderate left ventricular dilatation. Severely reduced global left ventricular systolic function. Severely abnormal left ventricular ejection fraction estimated at 15-20%. Right Ventricle Right ventricular dilatation. Right Atrium Right atrial dilatation. Left Atrium Moderate left atrial dilatation. Mitral Valve Mitral valve thickened. Moderate mitral regurgitation. Aortic Valve Structurally normal trileaflet aortic valve. Trace to mild aortic regurgitation. Tricuspid Valve Tricuspid valve not well visualized, grossly normal. Moderate tricuspid regurgitation. Right ventricular systolic pressure estimated at 44 mmHg. Pulmonic Valve Pulmonic valve not well visualized, grossly normal. Pericardium Minimal pericardial effusion (normal variant). Great Vessels Normal size aortic root and proximal ascending aorta. CONCLUSIONS 1. This was a technically difficult examination. 2. The aortic valve is trileaflet and normal. 3. Mitral leaflet thickening is present with moderate mitral insufficiency and moderate left atrial enlargement. 4. A physiologic pericardial effusion is present. 5. The left ventricular chamber is moderately enlarged with an BUNNY of 76 mm. There is global hypokinesia present with an estimated LV ejection fraction of approximately 20%. 6. Enlargement of the right heart chambers is present with moderate tricuspid insufficiency and an estimated RV systolic pressure of 44 mmHg. Chandni Meza M.D. (Electronically Signed) Final Date: 05 January 2017 20:29 MEASUREMENTS (Male / Female) Normal Values 2D ECHO LV Diastolic Diameter PLAX 7.7 cm 4.2 - 5.9 / 3.9 - 5.3 cm LV Systolic Diameter PLAX 7.1 cm 2.1 - 4.0 cm LV Fractional Shortening PLAX 7.8 % 25 - 46 % LV Ejection Fraction 2D Teich 16.7 % IVS Diastolic Thickness 1.2 cm LVPW Diastolic Thickness 1.2 cm LV Relative Wall Thickness 0.3 RV Internal Dim ED PLAX 4.6 cm 1.9 - 3.8 cm LVOT Diameter 2.8 cm Aortic Root Diameter 4.2 cm LA Systolic Diameter LX 5.2 cm 3.0 - 4.0 / 2.7 - 3.8 cm LA Volume 122.0 cm 18 - 58 / 22 - 52 cm Ascending Aorta Diameter 4.5 cm DOPPLER AV Peak Velocity 111.0 cm/s AV Peak Gradient 4.9 mmHg AV Mean Velocity 76.6 cm/s AV Mean Gradient 3.0 mmHg AV Velocity Time Integral 17.9 cm AI Deceleration [place] 93.4 cm/s AI Peak Velocity 275.0 cm/s AI Pressure Half Time 861.0 ms AI Peak Gradient 30.3 mmHg LVOT Peak Velocity 51.9 cm/s LVOT Peak Gradient 1.1 mmHg LVOT Mean Velocity 35.3 cm/s LVOT Mean Gradient 1.0 mmHg LVOT Velocity Time Integral 10.3 cm LVOT Stroke Volume 63.4 cm AV Area Cont Eq vti 3.5 cm AV Area Cont Eq pk 2.9 cm MV Peak Velocity 99.3 cm/s MV Peak Gradient 3.9 mmHg MV Mean Velocity 55.5 cm/s MV Mean Gradient 2.0 mmHg Mitral E Point Velocity 76.0 cm/s Mitral A Point Velocity 28.6 cm/s Mitral E to A Ratio 2.7 MV PHT Velocity 109.0 cm/s MV Deceleration [place] 497.0 cm/s MV Pressure Half Time 65.8 ms MV Area PHT 3.3 cm MV Deceleration Time 260.5 ms MR Peak Velocity 478.0 cm/s MR Peak Gradient 91.4 mmHg TR Peak Velocity 309.0 cm/s TR Peak Gradient 38.2 mmHg Right Atrial Pressure 15.0 mmHg Pulmonary Artery Systolic Pressu 53.2 mmHg Right Ventricular Systolic Press 53.2 mmHg PV Peak Velocity 56.5 cm/s PV Peak Gradient 1.3 mmHg PV Mean Velocity 38.4 cm/s PV Mean Gradient 1.0 mmHg PV Velocity Time Integral 7.7 cm LV E' Lateral Velocity 8.6 cm/s Mitral E to LV E' Lateral Ratio 8.9
[2017-01-05 22:21] VITALS: BP 120/70
[2017-01-06 07:44] VITALS: BP 122/72
--- NOTE | 2017-01-06 13:31 | PN- Cardiology ---
Subjective Subjective: The patient is doing somewhat better. She remains intermittently dyspneic. I had a long discussion with the patient about her record review from [facility] intercurrent status. Objective Vital Signs and I&Os Vital Signs Date Time Temp Pulse Resp B/P B/P Pulse O2 O2 Flow FiO2 Mean Ox Delivery Rate 01/07 744 98.0 95 20 122/72 92 Room Air 01/05 2221 98.8 102 20 120/70 95 Room Air 01/05 1456 99.0 106 18 120/80 96 Room Air Intake & Output 01/06 1600 01/06 0801/06 0000 01/05 1600 01/05 0801/05 0000 Intake Total 800 760 880 120 180 Output Total 247 229 2467 800 Balance 200 -140 -270 -680 180 Intake, IV 10 30 Intake, Oral 800 750 850 120 180 Output, Urine 961 424 5332 800 Patient 350 lb Weight Weight Reported by Patient Measurement Method Current Medications: Current Medications Sig/Isidro Start time Last Medication Dose Route Stop Time Status Admin Acetaminophen 650 MG Q6P PRN 01/04 2315 AC PO Acetaminophen/ 1 TAB Q6P PRN 01/04 2315 AC Hydrocodone Bitart PO Epinephrine 2 MG .STK-MED ONE 01/05 1442 DC IM 01/05 1443 Furosemide 40 MG DAILY 01/05 1000 AC 01/06 IV 0837 Heparin Sodium 5,000 UNIT Q8 01/04 2301 AC 01/06 (Porcine) SC 0610 Results Last 48 Hrs of Labs/Mics: Laboratory Tests 01/06/17 0702: Anion Gap 9, Estimated GFR > 60, BUN/Creatinine Ratio 17.0 01/05/17 0703: Anion Gap 11, Estimated GFR 57 L, BUN/Creatinine Ratio 16.4, Troponin I 0.06, CBC w Diff NO MAN DIFF REQ, RBC 4.48, MCV 86.2, MCH 28.2, RDW 15.7 H, MPV 10.4, Gran % 56.1, Lymphocytes % 34.0, Monocytes % 4.7, Eosinophils % 4.5, Basophils % 0.7, Absolute Granulocytes 5.2, Absolute Lymphocytes 3.2, Absolute Monocytes 0.4 , Absolute Eosinophils 0.4, Absolute Basophils 0.1, PUBS MCHC 32.7 L 01/05/17 0640: Urine Opiates Screen < 100.00, Methadone Screen < 40, Barbiturate Screen < 60, Ur Phencyclidine Scrn < 6.00, Amphetamines Screen < 100, U Benzodiazepines Scrn < 85, Urine Cocaine Screen < 50, Urine Cannabis Screen < 5.00, Urine Color YEL, Urine Clarity CLEAR, Urine pH 6.0, Ur Specific [place] 1.010, Urine Protein NEG, Urine Ketones NEG, Urine Nitrite NEG, Urine Bilirubin NEG, Urine Urobilinogen 0.2, Ur Leukocyte Esterase NEG, Ur Microscopic EXAM NOT REQUIRED, Urine Hemoglobin NEG, Urine Glucose NEG 01/05/17 0005: Troponin I 0.07 01/04/17 1757: Anion Gap 10, Estimated GFR 57 L, BUN/Creatinine Ratio 16.4, Glucose 107 H, Calcium 9.5, Total Bilirubin 1.2, AST 24, ALT 54 H, Alkaline Phosphatase 65, Troponin I 0.07, Jub-C-Iamqysbzgjr Pept 6720 H, Total Protein 6.2 L, Albumin 3.9, Globulin 2.3, Albumin/Globulin Ratio 1.7, TSH 4.730 H, Free T4 1.37, Total Beta HCG NEGATIVE, D-Dimer High Sensitivty 619 H, CBC w Diff NO MAN DIFF REQ, RBC 4.59, MCV 86.1, MCH 27.9, RDW 15.8 H, MPV 10.0, Gran % 58.7, Lymphocytes % 31.6, Monocytes % 3.9, Eosinophils % 4.5, Basophils % 1.3, Absolute Granulocytes 5.8, Absolute Lymphocytes 3.1, Absolute Monocytes 0.4, Absolute Eosinophils 0.4, Absolute Basophils 0.1, PUBS MCHC 32.4 L Assessment/Plan Assessment/Plan Assessment: 1. Worsening shortness of breath with evidence of congestive heart failure. 2. Dilated cardiomyopathy with HFrEF-etiology of the patient's car to myopathy remains unclear. Her echocardiogram shows moderate left ventricular dilatation with an ejection fraction of approximately 20%. Her ECG is abnormal but unchanged from one year ago. The duration of the cardia myopathy is unclear. Review of her [place]'s records suggests that she was admitted at that time for what was felt to be seizure activity with respiratory failure. She had an elevated CPK and troponin at that time. No obvious cardiac workup was performed however. It is possible that the cardiomyopathy existed at that time and that the episode was induced by an arrhythmia. The patient and I had an extended discussion about the importance of pursuing further evaluation including cardiac catheterization, cardiac MRI, possible defibrillator, etc. 3. Nonsustained ventricular tachycardia 4. History of prior "cardiac arrest" 5. Adenopathy noted on chest CT scan-pulmonary evaluation and/input pending. Clearly, further evaluation will be ultimately needed to rule out other issues such as sarcoidosis, etc. 6. History of drug use/polysubstance abuse 7. Mild acute renal insufficiency 8. Moderate mitral and tricuspid insufficiency Recommendations: -Continue gentle diuresis with IV Lasix -Continue to monitor intakes, outputs, daily weights -Pulmonary input pending -Start carvedilol 3.125 mg twice a day -Follow-up labs in 24 hours. -Please keep the patient nothing by mouth after midnight Sunday for possible transfer for cardiac catheterization on Sunday. Continue telemetry? Yes
--- NOTE | 2017-01-06 14:32 | PN- Housestaff ---
Subjective Follow-up For: CHF LYMPHADENOPATHY Complaints: no complaints Tele-Events Since Last Visit: NSR, 68-106 Subjective: patient is sitting up in bed, in no distress, no complaints currently, noice that her shortness of breath is better, and that the swelling in her legs increased, still experiencing orthopnea. denies headache, cp, nv, dizziness, syncope. Review of Systems Constitutional: Denies: no symptoms. Cardiovascular: Reports: edema, orthopena. Respiratory: Denies: no symptoms. Musculoskeletal: Reports: muscle pain. Objective Last 24 Hrs of Vital Signs/I&O Vital Signs Date Time Temp Pulse Resp B/P B/P Pulse O2 O2 Flow FiO2 Mean Ox Delivery Rate 01/06 0744 98.0 95 20 122/72 92 Room Air 01/05 2221 98.8 102 20 120/70 95 Room Air 01/05 1456 99.0 106 18 120/80 96 Room Air Intake & Output 01/06 1600 /08 0800 07/08 0000 Intake Total 800 760 Output Total 600 900 Balance 200 -140 Intake, IV 10 Intake, Oral 800 750 Output, Urine 600 900 Physical Exam General Appearance: Alert, Oriented X3, Cooperative, No Acute Distress Skin: No Rashes, No Breakdown, No Significant Lesion Skin Temp/Moisture Exam: Warm/Dry Sepsis Skin Exam (color): Normal for Ethnicity HEENT: Atraumatic, PERRLA, EOMI, Mucous Membr. moist/pink Neck: Supple Cardiovascular: Regular Rate, Normal S1, Normal S2, No Murmurs Lungs: Clear to Auscultation, Normal Air Movement Abdomen: Normal Bowel Sounds, Soft Extremities: bilat 2+ pitting edema Assessment/Plan Assessment: 36 year old female with PMH of DRUG OVERDOSE LEADING TO CARDIAC ARREST, SMOKING, PNA, presents with one week history of increasing dyspnea on exertion and lower extremity edema. Patient developed dsypnea on exertion, orthopnea, LE bilateral edema, cardiomegaly on CXR and elevated proBNP concerning for new onset congestive heart failure. patient found to have possible right clavicular lymphadenopathy incidentally. # congestive heart failure: -Dilated cardiomyopathy with HFrEF- ? cardiomyopathy due to sarcoidosis or other infilterative processes; multiple cervical and thoracic LN, vs ? secondary to drug abuse -Her echocardiogram shows moderate left ventricular dilatation with an ejection fraction of approximately 20%. - Her ECG is abnormal but unchanged from one year ago - might be a candidate for further evaluation including cardiac catheterization, cardiac MRI, possible defibrillator, as per Dr Meza recomm -Continue gentle diuresis with IV Lasix -Continue to monitor intakes, outputs, daily weights -Start carvedilol 3.125 mg twice a day as per cardio recomm - keep the patient nothing by mouth after midnight Sunday for possible transfer for cardiac catheterization on Sunday. # lymphadenopathy, lung nodes: -CTA chest: Right supraclavicular and subcarinal lymphadenopathy with other small borderline enlarged mediastinal nodes as noted. -Differential includes?reactive changes ? sarcoidosis ? malignancy. - pulmonary consultation is recommended. # acute renal failure: today renal f normal ( cr 1 bun: 17 heart healthy diet heparin dvt prophylaxis full code Problem List: 1. CHF (congestive heart failure) 2. Lymphadenopathy Pain Ratin Pain Location: n/a Pain Goal: Remain pain free Pain Plan: tylenol Tomorrow's Labs & Rationales: bep: pt on lasix DVT/Prophylaxis: pharmacological Consulting Request: Consulting Specialty: Cardiology
[2017-01-06 14:57] VITALS: BP 132/90
[2017-01-06 22:41] VITALS: BP 130/90
[2017-01-07 06:54] VITALS: BP 124/90
--- NOTE | 2017-01-07 08:49 | PN- Cardiology ---
Subjective Subjective: The patient continues to feel slightly better with diuresis. She has been tolerating the carvedilol. She still feels winded with going to the bathroom and taking a shower. Overall, she feels slightly better. Objective Vital Signs and I&Os Vital Signs Date Time Temp Pulse Resp B/P B/P Pulse O2 O2 Flow FiO2 Mean Ox Delivery Rate 01/07 0654 97.4 90 20 124/90 94 Room Air 01/06 2241 97.9 105 20 130/90 95 Room Air 01/06 2226 99 132/78 01/06 1726 100 132/90 01/06 1457 97.6 100 20 132/90 95 Room Air Intake & Output 01/07 1600 01/07 0800 01/07 0000 01/06 1600 01/06 0800 01/06 0000 Intake Total 800 800 600 800 760 Output Total 900 800 600 900 Balance -100 800 -200 200 -140 Intake, IV 10 Intake, Oral 800 800 600 800 750 Output, Urine 900 800 600 900 Patient 391 lb Weight Weight Chair scale Measurement Method Current Medications: Current Medications Sig/Isidro Start time Last Medication Dose Route Stop Time Status Admin Acetaminophen 650 MG Q6P PRN 01/04 2315 AC PO Acetaminophen/ 1 TAB Q6P PRN 01/04 2315 AC Hydrocodone Bitart PO Carvedilol 3.125 MG BID 01/06 1502 AC 01/06 PO 2226 Furosemide 40 MG DAILY 01/05 1000 AC 01/06 IV 0837 Heparin Sodium 5,000 UNIT Q8 01/04 2301 AC 01/07 (Porcine) SC 0633 Results Last 48 Hrs of Labs/Mics: Laboratory Tests 01/07/17 0728: Sodium Pending, Potassium Pending, Chloride Pending, Carbon Dioxide Pending, Anion Gap Pending, BUN Pending, Creatinine Pending, BUN/Creatinine Ratio Pending 01/06/17 0702: Anion Gap 9, Estimated GFR > 60, BUN/Creatinine Ratio 17.0 Assessment/Plan Assessment/Plan Assessment: 1. Worsening shortness of breath with evidence of congestive heart failure. 2. Dilated cardiomyopathy with HFrEF-etiology of the patient's car to myopathy remains unclear. Her echocardiogram shows moderate left ventricular dilatation with an ejection fraction of approximately 20%. Her ECG is abnormal but unchanged from one year ago. The duration of the cardia myopathy is unclear. Review of her [place]'s records suggests that she was admitted at that time for what was felt to be seizure activity with respiratory failure. She had an elevated CPK and troponin at that time. No obvious cardiac workup was performed however. It is possible that the cardiomyopathy existed at that time and that the episode was induced by an arrhythmia. The patient and I had an extended discussion about the importance of pursuing further evaluation including cardiac catheterization, cardiac MRI, possible defibrillator, etc. 3. Nonsustained ventricular tachycardia 4. History of prior "cardiac arrest" 5. Adenopathy noted on chest CT scan-pulmonary evaluation and/input pending. Clearly, further evaluation will be ultimately needed to rule out other issues such as sarcoidosis, etc. 6. History of drug use/polysubstance abuse 7. Mild acute renal insufficiency 8. Moderate mitral and tricuspid insufficiency Recommendations: -Continue gentle diuresis with IV Lasix -Continue to monitor her intakes, outputs, and daily weights. -If tolerated, increase carvedilol to 6.25 mg twice a day today -Please keep the patient nothing by mouth after midnight tonight for possible cardiac catheterization tomorrow. -Possible transfer to the [facility] tomorrow for cardiac cath and cardiac MRI -Eventual further outpatient evaluation for possible AICD, lymph node biopsy, etc. -Consideration for further genetic testing and enrollment in [place] cardia myopathy clinic as well. Continue telemetry? Yes
--- NOTE | 2017-01-07 08:55 | PN- Housestaff ---
Assessment/Plan Assessment: 36 year old female with PMH of DRUG OVERDOSE LEADING TO CARDIAC ARREST, SMOKING, PNA, presents with one week history of increasing dyspnea on exertion and lower extremity edema. Patient developed dsypnea on exertion, orthopnea, LE bilateral edema, cardiomegaly on CXR and elevated proBNP concerning for new onset congestive heart failure. patient found to have possible right clavicular lymphadenopathy incidentally. # congestive heart failure: -Dilated cardiomyopathy with HFrEF- ? cardiomyopathy due to sarcoidosis or other infilterative processes; multiple cervical and thoracic LN, vs ? secondary to drug abuse -Her echocardiogram shows moderate left ventricular dilatation with an ejection fraction of approximately 20%. - Her ECG is abnormal but unchanged from one year ago - might be a candidate for further evaluation including cardiac catheterization, cardiac MRI, possible defibrillator, as per Dr Meza recomm -Continue gentle diuresis with IV Lasix -Continue to monitor intakes, outputs, daily weights -Start carvedilol 3.125 mg twice a day as per cardio recomm - keep the patient nothing by mouth after midnight Sunday for possible transfer for cardiac catheterization on Sunday. # lymphadenopathy, lung nodes: -CTA chest: Right supraclavicular and subcarinal lymphadenopathy with other small borderline enlarged mediastinal nodes as noted. -Differential includes?reactive changes ? sarcoidosis ? malignancy. - pulmonary consultation is recommended. # acute renal failure: today renal f normal ( cr 1 bun: 17 heart healthy diet heparin dvt prophylaxis full code Consulting Request: Consulting Specialty: Cardiology
--- NOTE | 2017-01-07 08:55 | PN- Housestaff ---
Subjective Follow-up For: CHF Complaints: no complaints Tele-Events Since Last Visit: Normal sinus rhythm 87-95 no events Subjective: Patient is sitting up in bed states that she feels good states that her edema bilaterally is better today complains of no pain. Review of Systems Constitutional: Denies: chills, diaphoresis, fever, malaise, weakness. EENTM: Reports: no symptoms. Cardiovascular: Reports: edema, orthopena, peripheral edema. Denies: chest pain, palpitations, syncope. Respiratory: Reports: short of breath. Denies: cough, hemoptysis, sputum production, stridor , wheezing. Gastrointestinal: Reports: no symptoms, diarrhea. Genitourinary: Reports: no symptoms. Musculoskeletal: Reports: no symptoms. Skin: Reports: no symptoms. Neurological/Psychological: Reports: no symptoms. Hematologic/Endocrine: Reports: no symptoms. Objective Last 24 Hrs of Vital Signs/I&O Vital Signs Date Time Temp Pulse Resp B/P B/P Pulse O2 O2 Flow FiO2 Mean Ox Delivery Rate 01/07 0654 97.4 90 20 124/90 94 Room Air 01/06 2241 97.9 105 20 130/90 95 Room Air 01/06 2226 99 132/78 07/ 1726 100 132/90 /08 1457 97.6 100 20 132/90 95 Room Air Intake & Output / 1600 / 0800 / 0000 Intake Total 800 800 Output Total 900 Balance -100 800 Intake, Oral 800 800 Output, Urine 900 Patient 391 lb Weight Weight Chair scale Measurement Method Physical Exam General Appearance: Alert, Oriented X3, Cooperative, No Acute Distress Skin: No Rashes, No Breakdown, No Significant Lesion Skin Temp/Moisture Exam: Warm/Dry Sepsis Skin Exam (color): Normal for Ethnicity HEENT: Atraumatic, PERRLA, EOMI, Mucous Membr. moist/pink Neck: Supple Cardiovascular: Regular Rate, Normal S1, Normal S2, No Murmurs, Gallops, Rubs Lungs: Clear to Auscultation, Normal Air Movement Abdomen: Normal Bowel Sounds, Soft, No Tenderness Neurological: Normal Speech Extremities: No Clubbing, No Cyanosis, Normal Pulses, 2+ pitting edema bilaterally Vascular: Normal Pulses, Pulses Symmetrical Sepsis Peripheral Pulse Location: Radial Sepsis Peripheral Pulse Exam: Normal Sepsis Cap Refill Exam: <2 Sec Current Medications: Current Medications Sig/Isidro Start time Last Medication Dose Route Stop Time Status Admin Acetaminophen 650 MG Q6P PRN 01/04 2315 AC PO Acetaminophen/ 1 TAB Q6P PRN 01/04 2315 AC Hydrocodone Bitart PO Carvedilol 3.125 MG BID 01/06 1502 AC 01/07 PO 1019 Furosemide 40 MG DAILY 01/05 1000 AC 01/07 IV 1019 Heparin Sodium 5,000 UNIT Q8 01/04 2301 AC 01/07 (Porcine) SC 1542 Last 24 Hrs of Lab/[place] Results Last 24 Hrs of Labs/Mics: Laboratory Tests 01/07/17 0728: Anion Gap 8, Estimated GFR 57 L, BUN/Creatinine Ratio 15.5 Orders ECHO Findings: The left ventricular chamber is moderately enlarged with an BUNNY of 76 mm. There is global hypokinesia present with an estimated LV ejection fraction of approximately 20% Radiology Findings: CTA CHEST VTE: Negative for pulmonary embolism. Assessment/Plan Assessment: 36 year old female with PMH of DRUG OVERDOSE LEADING TO CARDIAC ARREST, SMOKING, PNA, presents with one week history of increasing dyspnea on exertion and lower extremity edema. Patient developed dsypnea on exertion, orthopnea, LE bilateral edema, cardiomegaly on CXR and elevated proBNP concerning for new onset congestive heart failure. patient found to have possible right clavicular lymphadenopathy incidentally. 1. congestive heart failure 2. acute renal failure 5. lung nodes? # congestive heart failure: -Dilated cardiomyopathy with HFrEF- ? cardiomyopathy due to sarcoidosis or other infilterative processes, positive family history, multiple cervical and thoracic LN, vs ? secondary to drug abuse -Continue gentle diuresis with IV Lasix -Continue to monitor intakes, outputs, daily weights -INCREASE CARVEDILOL TO 6.25 mg twice a day as per cardio recomm for nonsustained vtach - keep the patient nothing by mouth after midnight for possible transfer for cardiac catheterization at [place] # acute renal failure: today renal f normal ( cr 1 bun: 17 # lymphadenopathy, lung nodes: -CTA chest: Right supraclavicular and subcarinal lymphadenopathy with other small borderline enlarged mediastinal nodes as noted. -Differential includes?reactive changes ? sarcoidosis ? malignancy. - pulmonary consultation is recommended outpatient or at [place] (where she is going for cath) heart healthy diet heparin dvt prophylaxis full code Problem List: 1. CHF (congestive heart failure) 2. Lymphadenopathy Pain Ratin Pain Location: NA Pain Goal: Remain pain free Pain Plan: NA Tomorrow's Labs & Rationales: DISCHARGE FOR CATH DVT/Prophylaxis: pharmacological Consulting Request: Consulting Specialty: Cardiology
--- NOTE | 2017-01-07 11:14 | Discharge Summary ---
Visit Information Visit Dates Admission Date: 01/04/17 Discharge Date: 01/08/17 Hospital Course Course Attending Physician: Elina COOLEY MD Primary Care Physician: PATIENT HAS NO PRIMARY CARE DR Consulting Request: Consulting Specialty: Cardiology Hospital Course: Patient is 36 year old morbidly obese female with past medical history significant for mitral valve prolapse diagnosis as a child never followed up with registered physical therapist, history of drug overdose in October 2015 status post cardiac arrest and multiple seizures clean since then with chief complaint of worsening shortness of breath and bilateral lower extremity edema for 1-1/2 weeks. At admission: Labs were WBC count 9.9, hemoglobin 12.8, platelet count 276, d-dimer 619, sodium 141, potassium 4.7, BUNs 18, creatinine 1.1, initial set of troponin 0.07 , proBNP 6720 Venous Doppler was negative for any DVT Chest CTA was negative for any pulmonary emboli but showed right supraclavicular and subcarinal lymphadenopathy with small borderline enlarged mediastinal nodes. Also trace right-sided pleural effusion and basilar atelectasis. Problem list 1. Worsening shortness of breath with evidence of congestive heart failure. 2. Dilated cardiomyopathy with HFrEF 3. Nonsustained ventricular tachycardia 4. History of prior "cardiac arrest" 5. Adenopathy noted on chest CT scan-pulmonary evaluation and/input pending. Clearly, further evaluation will be ultimately needed to rule out other issues such as sarcoidosis, etc. 6. History of drug use/polysubstance abuse 7. Mild acute renal insufficiency 8. Moderate mitral and tricuspid insufficiency 1. Worsening shortness of breath with evidence of congestive heart failure: Patient was admitted to the telemetry floor and IV Lasix was started for diuresis. Patient was put on monitoring analyst and daily intake of put were closely monitored. She had multiple episodes of nonsustained V. tach on the monitoring analyst. She was started on a small dose of carvedilol. Her shortness of breath and leg edema improved with diuresis. Echocardiogram showed moderate left ventricular dilatation, severely reduced global ventricular systolic function and extremely abnormal left ventricular ejection fraction of 15-20%. Right heart pressures were 44 mm. The left ventricular chamber was moderately dilated with BUNNY of 76 mm. There was enlargement of right heart chambers with moderate MR and moderate TR. Patient needs further workup for her cardiomyopathy and therefore is being transferred to [facility] for a cardiac catheterization and further worup for the cardiopathy, possible AICD, lymph node biopsy, etc. Consideration for further genetic testing and enrollment in [place] cardiomyopathy clinic as well. 2. Dilated cardiomyopathy with HFrEF-etiology of the patient's car to myopathy remains unclear. Etiology of the patient's cardiomyopathy was unclear. Her echocardiogram shows moderate left ventricular dilatation with an ejection fraction of approximately 20%. Her ECG is abnormal but unchanged from one year ago. The duration of the cardiomyopathy is unclear. Review of her [facility] records suggested that she was admitted for to seizure activity with respiratory failure. She had an elevated CPK and troponin at that time. No obvious cardiac workup was performed however. It is possible that the cardiomyopathy existed at that time and that the episode was induced by an arrhythmia. The patient had extended discussion with the registered physical therapist about the importance of pursuing further evaluation including cardiac catheterization, cardiac MRI, possible defibrillator, etc. 3. Nonsustained ventricular tachycardia: Patient had episodes of nonsustained V. tach in the monitoring analyst,she was started on carvedilol. Plan for further workup cardiac MRI/EPI study/ICD 4. History of prior "cardiac arrest": Was in [facility] in 2016 due to multidrug abuse. 5. Adenopathy noted on chest CT scan-pulmonary evaluation and/input pending. Clearly, further evaluation will be ultimately needed to rule out other issues such as sarcoidosis, etc. pulmonology was consulted. Plan is to do a biopsy of the lymph nodes if the patient's cardiac status is stabilized DVT prophylaxis: Subcutaneous heparin Full code Mild pain pathway Allergies: Coded Allergies: Penicillins (RASH 11/06/16) Disposition Summary Disposition Principal Diagnosis: Worsening shortness of breath with evidence of congestive heart failure. Additional Diagnosis: Dilated cardiomyopathy with HFrEF Discharge Disposition: other general hospital Discharge Instructions General Discharge Information Code Status: Full Code Patient's Diet: HEART HEALTHY Patient's Activity: TOLERATED Follow-Up Instructions/Appts: PLEASE F/U WITH YOUR HOME THEATER INSTALLER WITHIN 1 WEEK OF DISCHARGE. PLEASE F/U WITH THE PHOTOGRAPHER PORTRAIT WITHIN 1 WEEK OF DISCHARGE. PLEASE F/U WITH YOUR PCP AFTER DISCHARGE. Medications at Discharge Discharge Medications: Start taking the following new medications: Carvedilol (Coreg) 3.125 MG TABLET 6.25 Milligram ORAL TWICE DAILY Days = 30 No Refills Furosemide (Furosemide) 10 MG/ML VIAL 40 Milligram INTRAVEN DAILY Days = 7 No Refills Copies To: Carmen TOUSSAINT MD; Elina COOLEY MD; ASHWINI GOULD,MACRINA
--- NOTE | 2017-01-07 11:31 | Patient Discharge Instructions ---
Discharge Instructions General Discharge Information You were seen/treated for: SHORTNESS OF BREATH Special Instructions: PLEASE F/U WITH YOUR RN INTERNSHIP WITHIN 1 WEEK OF DISCHARGE. PLEASE F/U WITH THE [facility] WITHIN 1 WEEK OF DISCHARGE. PLEASE F/U WITH YOUR PCP AFTER DISCHARGE. Diet Recommended Diet: Heart Healthy, Regular no added salt Activity Full Activity/No Limits: Yes ( TOLERATED) Acute Coronary Syndrome Inclusion Criteria At DC or during hospital stay patient has or had the following: ACS DIAGNOSIS No Discharge Core Measures Meds if any: Prescribed or Continued at Discharge Meds if any: NOT Prescribed or Continued at Discharge Congestive Heart Failure Inclusion Criteria At DC or during hospital stay patient has or had the following: CHF DIAGNOSIS Yes Discharge Core Measures Meds if any: Prescribed or Continued at Discharge JUAREZ/ARB for EF <40% No Meds if any: NOT Prescribed or Continued at Discharge No JUAREZ/ARB d/t Renal Failure/Azotemia Cerebrovascular accident Inclusion Criteria At DC or during hospital stay patient has or had the following: CVA/TIA Diagnosis No Discharge Core Measures Meds if any: Prescribed or Continued at Discharge Meds if any: NOT Prescribed or Continued at Discharge Venous thromboembolism Inclusion Criteria VTE Diagnosis No VTE Type NONE VTE Confirmed by (Test) NONE Discharge Core Measures - Per Current guidelines, there needs to be overlap - treatment for the first 5 days of Warfarin therapy. - If discharged on Warfarin prior to 5 days of - overlap therapy, the patient will need to be - assessed for post discharge needs including - *Post discharge parental anticoagulation - *Warfarin and/or parental anticoagulation education - *Follow up date to check INR post discharge At least 5 days overlap therapy as Inpatient No Meds if any: Prescribed or Continued at Discharge Note: Overlap Therapy is Warfarin and Anticoagulant Meds if any: NOT Prescribed or Continued at Discharge
[2017-01-07 14:53] VITALS: BP 122/86
[2017-01-08 07:01] VITALS: BP 118/66
--- NOTE | 2017-01-08 08:46 | PN- Housestaff ---
Subjective Follow-up For: CHF Complaints: pain scale (0-10) Tele-Events Since Last Visit: Normal sinus rhythm 85-100 events Subjective: She is examined bedside, is sitting up in bed. Has no complaints and is eager to get her cardiac cath done. She states that her swelling is always better in the morning. She walked a bit last night and had some breathing problems. She denies palpitations diaphoresis and chest pain cough. She had some nausea last night was given Tigan and is now better. She is currently nothing by mouth for her cath procedure. Review of Systems Constitutional: Reports: no symptoms. EENTM: Reports: no symptoms. Cardiovascular: Reports: edema, orthopena, peripheral edema. Denies: chest pain, palpitations. Respiratory: Reports: orthopnea, short of breath. Denies: cough. Gastrointestinal: Reports: no symptoms. Genitourinary: Reports: no symptoms. Musculoskeletal: Reports: no symptoms. Skin: Reports: no symptoms. Neurological/Psychological: Reports: no symptoms. Hematologic/Endocrine: Reports: no symptoms. Immunologic/Allergic: Reports: no symptoms. Objective Last 24 Hrs of Vital Signs/I&O Vital Signs Date Time Temp Pulse Resp B/P B/P Pulse O2 O2 Flow FiO2 Mean Ox Delivery Rate 01/08 0952 118/66 01/08 0701 98.1 88 20 118/66 96 Room Air 01/07 2211 97.8 20 01/07 2139 101 18 123/60 01/07 1453 97.9 95 20 122/86 97 Room Air Intake & Output 01/08 1600 / 0800 01/08 0000 Intake Total 480 Output Total 600 Balance -600 480 Intake, Oral 480 Output, Urine 600 Patient 383 lb Weight Physical Exam General Appearance: Alert, Oriented X3, Cooperative, No Acute Distress Skin: No Rashes, No Breakdown, No Significant Lesion Skin Temp/Moisture Exam: Warm/Dry Sepsis Skin Exam (color): Normal for Ethnicity HEENT: Atraumatic, EOMI, Mucous Membr. moist/pink Neck: Supple Cardiovascular: Regular Rate, Normal S1, Normal S2, No Murmurs, Gallops, Rubs Lungs: Clear to Auscultation, Normal Air Movement Abdomen: Normal Bowel Sounds, Soft, No Tenderness Neurological: Normal Speech Extremities: No Clubbing, No Cyanosis, Normal Pulses, No Tenderness/Swelling Vascular: Normal Pulses Sepsis Peripheral Pulse Location: Radial Sepsis Peripheral Pulse Exam: Normal Current Medications: Current Medications Sig/Isidro Start time Last Medication Dose Route Stop Time Status Admin Acetaminophen 650 MG Q6P PRN 01/04 2315 AC PO Acetaminophen/ 1 TAB Q6P PRN 01/04 2315 AC Hydrocodone Bitart PO Carvedilol 6.25 MG BID 01/07 2200 AC 01/08 PO 0952 Carvedilol 3.125 MG BID 01/06 1502 DC 01/07 PO 1019 Furosemide 40 MG DAILY 01/05 1000 AC 01/08 IV 0952 Heparin Sodium 5,000 UNIT Q8 01/04 2301 AC 01/08 (Porcine) SC 0600 Ondansetron HCl 4 MG Q6P PRN 01/08 0030 AC IV Trimethobenzamide HCl 200 MG 4 TIMES/DAY PRN 01/08 0030 AC IM Last 24 Hrs of Lab/[place] Results Last 24 Hrs of Labs/Mics: Laboratory Tests 01/08/17 0713: Anion Gap 9, Estimated GFR 57 L, BUN/Creatinine Ratio 17.3 Lines/Diet/Fluids Lines: peripheral lines Assessment/Plan Assessment: Assessment 36 year old female with PMH of DRUG OVERDOSE LEADING TO CARDIAC ARREST, SMOKING, PNA, presents with one week history of increasing dyspnea on exertion and lower extremity edema. Patient developed dsypnea on exertion, orthopnea, LE bilateral edema, cardiomegaly on CXR and elevated proBNP concerning for new onset congestive heart failure. patient found to have possible right clavicular lymphadenopathy incidentally. 1. congestive heart failure 2. acute renal failure 3. lymphadenopathy Plan # congestive heart failure: -Dilated cardiomyopathy with HFrEF- ? cardiomyopathy due to sarcoidosis or other infilterative processes, positive family history, multiple cervical and thoracic LN, vs ? secondary to drug abuse -Continue gentle diuresis with IV Lasix 40 mg IV daily -Continue to monitor intakes, outputs, daily weights -CARVEDILOL TO 6.25 mg twice a day as per cardio recomm for nonsustained vtach - keep the patient nothing by mouth for cardiac cath -We'll eventually need further outpatient evaluation for possible AICD placement and further genetic testing with enrollment in the [place] cardiomyopathy clinic # acute renal failure: -today renal function is creatinine 1.1 # lymphadenopathy, lung nodes: -CTA chest: Right supraclavicular and subcarinal lymphadenopathy with other small borderline enlarged mediastinal nodes as noted. -Differential includes?reactive changes ? sarcoidosis ? malignancy. - pulmonary consultation is recommended outpatient or at [facility] (where she is going for cath) heart healthy diet heparin dvt prophylaxis full code Problem List: 1. Lymphadenopathy 2. CHF (congestive heart failure) Pain Ratin Pain Location: N/A Pain Goal: Remain pain free Pain Plan: N/A Tomorrow's Labs & Rationales: Emeka is to be discharged today to [facility] for cath procedure Consulting Request: Consulting Specialty: Cardiology
--- NOTE | 2017-01-08 09:41 | PN- Cardiology ---
Subjective Subjective: The patient reports that she is feeling well. Shortness of breath is improved. No chest pain. No palpitations. No diaphoresis. No lightheadedness or dizziness. No nausea or vomiting. No syncope. Objective Vital Signs and I&Os Vital Signs Date Time Temp Pulse Resp B/P B/P Pulse O2 O2 Flow FiO2 Mean Ox Delivery Rate 01/08 701 98.1 88 20 118/66 96 Room Air 01/07 2211 97.8 20 01/07 2139 101 18 123/60 01/07 1453 97.9 95 20 122/86 97 Room Air 01/07 1019 132/80 Intake & Output 01/08 1600 01/08 0801/08 0000 01/07 1600 01/07 0000 Intake Total 480 1000 800 800 Output Total 600 600 900 Balance -600 480 400 -100 800 Intake, Oral 480 1000 800 800 Output, Urine 600 600 900 Patient 383 lb 391 lb Weight Weight Chair scale Measurement Method Physical Exam: Gen: NAD HEENT: normal Lungs: clear to auscultation, normal resp. effort Heart: RRR, S1, S2, 1/6 systolic murmur Abdomen: Soft, nontender, no masses Extremities: No clubbing, cyanosis, or edema. Neuro: Alert and oriented x 3, cranial nerves intact Current Medications: Current Medications Sig/Isidro Start time Last Medication Dose Route Stop Time Status Admin Acetaminophen 650 MG Q6P PRN 01/04 2315 AC PO Acetaminophen/ 1 TAB Q6P PRN 01/04 2315 AC Hydrocodone Bitart PO Carvedilol 6.25 MG BID 01/07 2200 AC 01/07 PO 2139 Carvedilol 3.125 MG BID 01/06 1502 DC 01/07 PO 1019 Furosemide 40 MG DAILY 01/05 1000 AC 01/07 IV 1019 Heparin Sodium 5,000 UNIT Q8 01/04 2301 AC 01/08 (Porcine) SC 0600 Ondansetron HCl 4 MG Q6P PRN 01/08 0030 AC IV Trimethobenzamide HCl 200 MG 4 TIMES/DAY PRN 01/08 0030 AC IM Results Last 48 Hrs of Labs/Mics: Laboratory Tests 01/08/17 0713: Anion Gap 9, Estimated GFR 57 L, BUN/Creatinine Ratio 17.3 01/07/17 0728: Anion Gap 8, Estimated GFR 57 L, BUN/Creatinine Ratio 15.5 Recent Imaging Studies: Echocardiogram 01/05/17: 1. This was a technically difficult examination. 2. The aortic valve is trileaflet and normal. 3. Mitral leaflet thickening is present with moderate mitral insufficiency and moderate left atrial enlargement. 4. A physiologic pericardial effusion is present. 5. The left ventricular chamber is moderately enlarged with an BUNNY of 76 mm. There is global hypokinesia present with an estimated LV ejection fraction of approximately 20%. 6. Enlargement of the right heart chambers is present with moderate tricuspid insufficiency and an estimated RV systolic pressure of 44 mmHg. Assessment/Plan Assessment/Plan Assessment: 1. Worsening shortness of breath with evidence of congestive heart failure. 2. Dilated cardiomyopathy with HFrEF 3. Nonsustained ventricular tachycardia 4. History of prior "cardiac arrest" 5. Adenopathy noted on chest CT scan-pulmonary evaluation and/input pending. Clearly, further evaluation will be ultimately needed to rule out other issues such as sarcoidosis, etc. 6. History of drug use/polysubstance abuse 7. Mild acute renal insufficiency 8. Moderate mitral and tricuspid insufficiency Plan: * Continue current cardiac medications. * Nothing by mouth for cardiac catheterization today. * Transfer to [facility]. * Eventual further outpatient evaluation for possible AICD, lymph node biopsy, etc. * Consideration for further genetic testing and enrollment in [place] cardiomyopathy clinic as well. Continue telemetry? Yes
[2017-01-08 09:52] VITALS: BP 118/66
[2017-01-08] MEDS ORDERED: COREG3.125 MG PO (09:58)
[2017-01-08] MEDS ORDERED: FUROSEMIDE10 MG/1 M1 IV (09:58)
== END 2017-01-08 11:24 | disposition short-term general hospital (02) | DRG 194 ==
LOC: ERH 16:37 → 1NO 21:27 → ERHI 21:27 → ENRESERV 21:55 → EDBEDREQ 22:01 → ERHI 22:10 → ENTRNSPT 22:35 → EDTRNSPTSTS 22:45 → 1NO 22:58 → CMPTRNSPT 23:09 → 1NO 23:15 → ENPENDDIS 01-08 10:01 → 1NO 01-08 11:24
PROVIDERS: Internal Medicine; Physician Assistant; ADMIT Student in an Organized Health Care Education/Training Program
DX: I50.21 Acute systolic (congestive) heart failure (principal); I47.2 Ventricular tachycardia; N17.9 Acute kidney failure, unspecified; Z86.74 Personal history of sudden cardiac arrest; I08.1 Rheumatic disorders of both mitral and tricuspid valves; Z68.43 Body mass index [BMI] 50.0-59.9, adult; E66.01 Morbid (severe) obesity due to excess calories; I42.0 Dilated cardiomyopathy; R59.0 Localized enlarged lymph nodes; J44.9 Chronic obstructive pulmonary disease, unspecified; F17.210 Nicotine dependence, cigarettes, uncomplicated
CPT/HCPCS: 1NSP; 36415; 80307; 81003; 82436; 93005; 93010; 93970; 96374; C8929; J0171; J1644; J1940; J3250; Q9957